=== PATIENT | female | born 1945 | race Caucasian/White ===

== ENCOUNTER 2024-02-22 12:19 | Outpatient (CLI) | payer MEDICARE, SELFPAY ==
--- NOTE | ~2024-02-22 | DEXA_ITS ---
Bone Density Report Name: DUY ORTA Age: 78 Sex: Female Ethnicity: White Date of : 1945 Indication: postmenopausal; screening for osteoporosis; Referring Provider: ANNEL OH Study: Bone densitometry was performed. Exam Date: February 22, 2024 Accession number: [id number] Bone Density: Region BMD T-score Z-score Classification AP Spine(L2, L3, L4) 1.135 0.5 3.1 Normal Femoral Neck (Left) 0.806 -0.4 1.8 Normal Total Hip (Left) 0.817 -1.0 0.9 Normal Femoral Neck (Right) 0.748 -0.9 1.3 Normal Total Hip (Right) 0.834 -0.9 1.0 Normal Femoral Neck Mean 0.777 -0.6 1.5 Normal Total Hip Mean 0.826 -1.0 0.9 Normal World Health Organization criteria for BMD impression classify patients as: Normal (T-score at or above -1.0), Osteopenia (T-score between -1.0 and -2.5), or Osteoporosis (T-score at or below -2.5). 10-year Fracture Risk: FRAX not reported because: All T-scores for Spine Total, Hip Total, Femoral Neck at or above -1.0 Clinical Information Provided by Patient: Smokes Has used the following medications: Vitamin D Patient maximum height was 61 Menopause Age: 37 No regular weight bearing exercise Does not regularly consume dairy products Drinks caffeinated beverages Onset of menses at age 13 Number of children 0 Impression: The patient has normal bone mass. The patient has risk factors, including: smoking. Discussion: BONE DENSITY IS ABOVE THE MINIMUM DESIRABLE LEVEL AT ALL SKELETAL SITES TESTED. This patient?s bone mineral density is above the minimum desirable level (T-score -1.0 or better) at all sites measured. The patient should follow a healthful lifestyle (good nutrition with adequate calcium and vitamin D, and appropriate weight-bearing exercise). Follow-Up: Consider repeating this study in 5 years or sooner if there is some new clinical indication. Reported by: Dr. Paolo Echols on 02/22/2024 12:45:00 PM. Reviewed, dictated and finalized at location [facility]
== END 2024-02-22 12:20 | disposition home or self-care (01) ==
LOC: CHSIMG 12:24
PROVIDERS: PCP Family Medicine; Visit Provider Orthopaedic Surgery
DX: M81.0 Age-related osteoporosis without current pathological fracture (principal)
CPT/HCPCS: 77080

== ENCOUNTER 2024-03-27 14:34 | Outpatient (CLI) | payer MEDICARE, SELFPAY ==
--- NOTE | 2024-03-27 14:40 | ECG_ITS ---
Test Date: 2024-03-27 14:48:33 Measurements Intervals [place] Rate: 75 P: 57 VA: 176 QRS: 56 QRSD: 74 T: 61 QT: 398 QTc: 446 Interpretive Statements SINUS RHYTHM RSR' IN V1 OR V2, PROBABLY NORMAL VARIANT BORDERLINE ST ABNORMALITY- LATERAL LEADS BASELINE ARTIFACT- I, II, III, AVR, AVL, AVF, V5 BORDERLINE ECG No previous ECG available for comparison Electronically Signed On 03-27-2024 14:49:09 CDT by Clay Barr D.O.
== END 2024-03-27 14:35 | disposition home or self-care (01) ==
LOC: CHSCARD 14:36
PROVIDERS: PCP Family Medicine; Visit Provider Internal Medicine Cardiovascular Disease
DX: R06.09 Other forms of dyspnea (principal)
CPT/HCPCS: 93005

== ENCOUNTER 2024-08-26 14:13 | Outpatient (CLI) | payer MEDICARE, SELFPAY ==
--- OUTSIDE RECORDS SUMMARY | 2024-08-26 14:32 | XMS_ITS | Encounter Summary ---
Author Organization [facility] Address [address] [place] [address]. [place], [place] [address] [place] [id number] Care Team Providers Care Iron Pourer Name Role Phone Bucky Jimenez MD Primary Care Provider [phone] Encounter Details Date Type Department Care Team (Late st Contact Info) Description 12/28/2018 Abstract SFL CONVERSION [address] [place] [address] , Generic Conversion, Social History Tobacco Use Types Packs/Day Years Used Date Smoking Tobacco: Never Assessed Comments Unknown Sex and Gender Information Value Date Recorded Sex Assigned at Female 08/02/2020 11:49 AM DECKHAND MAINTENANCE Legal Sex Female 5:48 PM DECKHAND MAINTENANCE Gender Identity Female 08/02/2020 11:49 AM DECKHAND MAINTENANCE Sexual Orientation Not on file documented as of this encounter Plan of Treatment Not on file documented as of this encounter Visit Diagnoses Not on filedocumented in this encounter Care Teams Iron Pourer Relationship Specialty Start Date End Date Bucky Jimenez MD [address] [place] [phone] PCP - General FAMILY PRACTICE 01/02/19 documented as of this encounter
--- OUTSIDE RECORDS SUMMARY | 2024-08-26 14:32 | XMS_ITS | Clinical Summary ---
Author Organization [facility] Address [address] [place] [address]. [place] [address] [place] [address] Care Team Providers Care Legal Department Manager Name Role Phone Bucky Jimenez MD Primary Care Provider +- [phone] Allergies No known active allergies Medications metFORMIN 500 MG tablet Take 2 tablets (1,000 mg total) by mouth 2 (two) times daily with meals. 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 Immunizations Name Administration Dates Next Due Fluzone High Dose - >Age 65 (Prefilled Syringe) 05/11/2020 PFIZER COVID-19 (ORIGINAL FO RMULATION, PURPLE CAP) mRNA, LNP-S, PF, 30 MCG/0.3 ML DOSE 10/01/2020,09/10/2020 Family History Medical History Relation Comments Arthritis Father Hypertension Father Arthritis Mother Diabetes Mother Stroke Mother Relation Status Comments Father Mother Social History Tobacco Use Types Packs/Day Years Used Date Smoking Tobacco: Every Day Cigarettes 0.5 60 Smokeless Tobacco: Never Tobacco Cessation:Ready to Q uit: No; Counseling Given: No Alcohol Use Standard Drinks/Week Comments Not Currently 0 (1 standard drink = 0.6 oz pur e alcohol) Social Connection and Isolat ion Panel [NHANES] Answer Date Recorded In a typical week, how many times do you talk on the phone with family, friends, or neighbors? More than three times a week 08/02/2020 How often do you get togethe r with friends or relatives? Never 08/02/2020 How often do you attend chur ch or baptist services? Never 08/02/2020 Do you belong to any clubs o r organizations such as scientology groups, unions, fraternal or athletic groups, or school groups? No 08/02/2020 How often do you attend meet ings of the clubs or organizations you belong to? Never 08/02/2020 Are you , , di vorced, , never , or living with a partner? 08/02/2020 Overall Financial Resource Strain (CARDIA) Answe r Date Recorded How hard is it for you to pa y for the very basics like food, housing, medical care, and heating? Not hard at all 08/02/2020 [facility] [place] [facility]ational Stress Questionnaire Answer Date Recorded Do you feel stress - tense, restless, nervous, or anxious, or unable to sleep at night because your mind is troubled all the time - these days? Not at all 08/02/2020 Exercise Vital Sign Answer Date Recorde d On average, how many days pe r week do you engage in moderate to strenuous exercise (like a brisk walk)? 0 days 08/02/2020 On average, how many minutes do you engage in exercise at this level? 0 min 08/02/2020 Hunger Vital Sign Answer Date Recorded Within the past 12 months, y ou worried that your food would run out before you got the money to buy more. Never true 08/02/19 21 Within the past 12 months, t he food you bought just didn't last and you didn't have money to get more. Never true 08/02/2020 PRAPARE - Transportation Answer Date Re corded In the past 12 months, has l ack of transportation kept you from medical appointments or from getting medications? No 07/23 In the past 12 months, has l ack of transportation kept you from meetings, work, or from getting things needed for daily living? No 08/02/2020 Education Answer Date Recorded What is the highest level of school you have completed or the highest degree you have received? 12th grade 08/02/2020 Comments No Sex and Gender Information Value Date Recorded Sex Assigned at Female 08/02/2020 11:49 AM WAX PATTERN ASSEMBLER Legal Sex Female 5:48 PM WAX PATTERN ASSEMBLER Gender Identity Female 08/02/2020 11:49 AM WAX PATTERN ASSEMBLER Sexual Orientation Not on file Last Filed Vital Signs Vital Sign Reading Time Taken Comments Blood Pressure 129/51 01/18/2021 2:32 PM CDT Pulse 62 01/18/2021 2:32 PM CDT Temperature 36.1 ??C (96.9 ??F) 01/18/2021 2:32 PM CD T Respiratory Rate 20 01/18/2021 2:32 PM CDT Oxygen Saturation 95% 01/18/2021 2:32 PM CDT Inhaled Oxygen Concentration - - Weight 74.4 kg (164 lb) 01/12/2021 12:54 PM CDT Height 154.9 cm (5' 1 ) 01/12/2021 12:54 PM CDT Body Mass Index 30.99 01/12/2021 12:54 PM CDT Plan of Treatment Health Maintenance Due Date Last Done Comments Hepatitis C 1963 DTaP, Tdap and Td Vaccines (1 - Tdap) 1964 Annual Medicare Wellness Visit 2012 Dexa Scan (General) 2012 RSV Immunization or 60+ Years (1 - 1-dose 75+ series) 2022 COVID-19 Vaccine ( season) 2024 10/01/2020, 09/10/2020 Influenza Adult (#1) 2024 06/26/2022, 05/12/2020, 05/11/2020, Additional history exists Lung Cancer Screening 03/19/2025 03/19/2024 , 08/21/2023, 06/23/2021 Pneumococcal Vaccine: 65+ Years Completed 03/11/2019, 02/11/2018 Zoster Vaccines Completed 04/09/2019, 08/24/2018 Meningococcal B Vaccine Aged Out No l onger eligible based on patient's age to complete this topic Meningococcal Vaccine Aged Out No brinda fili eligible based on patient's age to complete this topic RSV Immunizations Under 20 Months Aged Out No longer eligible based on patient's age to complete this topic Procedures Procedure Name Priority Date/Time Associated Diagnosis Comments CT CHEST WO CON FLAVIA 03/19/2024 8:05 AM CDT Lung nodule from Last 3 Months or Most Recently Relevant to Health Maintenance Results * CT CHEST WO CON (03/19/2024 8:05 AM CDT) Anatomical Region Laterality Modality Chest Computed Tomogra phy 03/19/2024 12:4 0 PM CDT Impressions 03/19/2024 12:48 PM CDT IMPRESSION: 1. Stable exam. Pulmonary nodule in the right middle lobe is unchanged over greater than 3 years and requires no specific additional follow-up, probably either small bronchocele with mucoid impaction versus postinfectious fibroatelectasis. 2. Stable mild subpleural reticular opacities which most likely represent mild fibrosis. This may be postinfectious, versus reflection of stable early/mild interstitial lung disease such as UIP or NSIP, less likely chronic/cluster 2 hypersensitivity pneumonitis. Ordered By: HAILE NUÑEZ Interpreted By: Hossein Turner MD, 03/19/2024 12:40 PM Narrative 03/19/2024 12:48 PM [address]T [address] [place] [address] EXAM: NONCONTRAST CT CHEST INDICATION: Follow-up lung nodule, fibrotic changes COMPARISON: 08/21/2023, 06/23/2021 TECHNIQUE: Unenhanced multidetector CT is performed through the chest. ??Multiplanar images are created and reviewed. A dose lowering technique was used for this procedure, which may include, but is not limited to, dose reduction techniques, automated exposure control, the use of a iterative reconstruction, and ALARA (as low as reasonably achievable)/image gently techniques. FINDINGS: Heart: Heart size is normal. There is no pericardial effusion. Great vessels: Normal in caliber. Mediastinum and [place]: There are calcified lymph nodes in the mediastinum and left hilum, compatible with prior granulomatous infection and essentially unchanged. No noncalcified adenopathy or mass is seen. Pleura: There is no effusion, pneumothorax, or pleural mass. Lungs: There is no acute pulmonary consolidation. Multiple calcified granulomata are present bilaterally, stable for several years. A small tubular/cylindrical nodule in the right middle lobe on series 2, image 53 has a maximum dimension of 1 cm and is unchanged dating back to 06/23/2021, either reflecting a small focus of mucoid impaction within a bronchocele versus fibroatelectatic scarring. Given stability over than 3 years, this May safely be assumed to be benign and requires no dedicated follow-up. Scattered foci of mild subpleural scarring and subsegmental fibroatelectasis show little change from prior studies. There is mild underlying emphysema. In addition, there is a subpleural distribution of mild reticular opacity, somewhat more pronounced in the dependent areas, although without particularly pronounced costophrenic angle involvement. Upper abdomen: Limited evaluation of the upper abdominal organs shows no acute abnormality. Other: No destructive osseous lesion is identified. Procedure Note Hossein Turner MD - 03/19/2024 [place] [id number] [facility] [place] [address] EXAM: NONCONTRAST CT CHEST INDICATION: Follow-up lung nodule, fibrotic changes COMPARISON: 08/21/2023, 06/23/2021 TECHNIQUE: Unenhanced multidetector CT is performed through the chest.Multiplanar images are created and reviewed. A dose lowering technique wasused for this procedure, which may include, but is not limited to, dosereduction techniques, automated exposure control, the use of a iterativereconstruction, and ALARA (as low as reasonably achievable)/image gentlytechniques. FINDINGS: Heart: Heart size is normal. There is no pericardial effusion. Great vessels: Normal in caliber. Mediastinum and china: There are calcified lymph nodes in the mediastinumand left hilum, compatible with prior granulomatous infection andessentially unchanged. No noncalcified adenopathy or mass is seen. Pleura: There is no effusion, pneumothorax, or pleural mass. Lungs: There is no acute pulmonary consolidation. Multiple calcifiedgranulomata are present bilaterally, stable for several years. A smalltubular/cylindrical nodule in the right middle lobe on series 2, image 53has a maximum dimension of 1 cm and is unchanged dating back to 06/23/2021,either reflecting a small focus of mucoid impaction within a bronchoceleversus fibroatelectatic scarring. Given stability over than 3 years, thisMay safely be assumed to be benign and requires no dedicated follow-up.Scattered foci of mild subpleural scarring and subsegmentalfibroatelectasis show little change from prior studies. There is mildunderlying emphysema. In addition, there is a subpleural distribution ofmild reticular opacity, somewhat more pronounced in the dependent areas,although without particularly pronounced costophrenic angle involvement. Upper abdomen: Limited evaluation of the upper abdominal organs shows noacute abnormality. Other: No destructive osseous lesion is identified. IMPRESSION: 1. Stable exam. Pulmonary nodule in the right middle lobe is unchangedover greater than 3 years and requires no specific additional follow-up,probably either small bronchocele with mucoid impaction versuspostinfectious fibroatelectasis. 2. Stable mild subpleural reticular opacities which most likely representmild fibrosis. This may be postinfectious, versus reflection of stableearly/mild interstitial lung disease such as UIP or NSIP, less likelychronic/cluster 2 hypersensitivity pneumonitis. Ordered By: HAILE NUÑEZ Interpreted By: Hossein Turner MD, 03/19/2024 12:40 PM Haile Nuñez MD CT Final Result from Last 3 Months or Most Recently Relevant to Health Maintenance Insurance MEDICARE [employer] Advance Directives * Full Code (Latest Code Status on File) Date Activated Date Inactivated Comments 08/02/2020 12:27 PM 08/03/2020 1:09 PM Care Teams Legal Department Manager Relationship Specialty Start Date End Date Bucky Jimenez MD [address] [place] [phone] PCP - General FAMILY PRACTICE 01/02/19
--- OUTSIDE RECORDS SUMMARY | 2024-08-26 14:32 | XMS_ITS | Clinical Summary ---
Author Organization [facility] Address [address] [place] [address] Care Team Providers Care Trust Manager Name Role Phone Bucky Jimenez MD Primary Care Provider Allergies No known active allergies Medications traMADoL (ULTRAM) 50 mg tablet Take 1 tablet (50 mg total) by mouth every 6 (six) hours as needed for pain Active Active Problems No known active problems Encounters Date Type Department Care Team Description 08/18/2024 12:24 PM BIOMEDICAL REPAIR TECHNICIAN - 08/18/2024 11:59 PM BIOMEDICAL REPAIR TECHNICIAN Hospital Encounter [facility] [address] [place] [address] Rad Amh Fluoro Right hip pain Discharge Disposition: Discharge to home or self care 08/08/2024 9:30 AM BIOMEDICAL REPAIR TECHNICIAN Office Visit [facility] [address] [place] [phone] Micaela Alexander NP Right hip pain (Primary Dx) 08/08/2024 7:50 AM BIOMEDICAL REPAIR TECHNICIAN - 08/08/2024 11:59 PM BIOMEDICAL REPAIR TECHNICIAN Hospital Encounter [facility] Medicine [address] [place] [phone] Discharge Disposition: Discharge to home or self care 08/08/2024 Telephone [facility] [address] [place] [phone] Kylah Brownlee MA no auth from Last 3 Months Surgical History Surgery Date Site/Laterality Comments BACK SURGERY FLUORO GUIDED INJECTION HIP RIGHT 08/18/2024 Right Social History Tobacco Use Types Packs/Day Years Used Date Smoking Tobacco: Every Day Cigarettes 0.1 68.1 Started: 1954 Tobacco Cessation:Ready to Q uit: No; Counseling Given: Yes Comments Unknown Sex and Gender Information Value Date Recorded Sex Assigned at Not on file Legal Sex Female 3:02 PM BIOMEDICAL REPAIR TECHNICIAN Gender Identity Not on file Sexual Orientation Not on file Obstetrics History Last Filed Vital Signs Vital Sign Reading Time Taken Comments Blood Pressure 120/68 08/08/2024 8:55 AM BIOMEDICAL REPAIR TECHNICIAN Pulse 73 08/08/2024 8:55 AM BIOMEDICAL REPAIR TECHNICIAN Temperature - - Respiratory Rate - - Oxygen Saturation - - Inhaled Oxygen Concentration - - Weight 70.8 kg (156 lb) 08/08/2024 8:55 AM BIOMEDICAL REPAIR TECHNICIAN Height 152.4 cm (5') 08/08/2024 8:55 AM BIOMEDICAL REPAIR TECHNICIAN Body Mass Index 30.47 08/08/2024 8:55 AM BIOMEDICAL REPAIR TECHNICIAN Plan of Treatment Health Maintenance Due Date Last Done Comments Depression Screening 1945 Fall Risk Assessment 1945 Hepatitis C Screening 1945 Osteoporosis Screening-Bone Density Scan 1945 DTaP/Tdap/Td Vaccine (1 - Tdap) 1958 Hepatitis B Screening 1965 Well Visit 65+ 2012 Covid-19 Vaccine (3 - 2023-2 5 season) 2024 10/01/2020, 09/10/2020 Influenza Vaccine (#1) 2024 , 05/30/2022, 05/18/2021, Additional history exists Pneumococcal vaccine 65+ Completed 03/11/2019, 01/21 Zoster Vaccine Completed 04/09/2019, 08/24/2018 Procedures Procedure Name Priority Date/Time Associated Diagnosis Comments FLUORO GUIDED INJECTION HIP RIGHT Schedule Routine, Read Routine (OP Routine) 08/18/2024 1:09 PM BIOMEDICAL REPAIR TECHNICIAN Right hip pain XR HIP RIGHT 2 OR 3 VIEWS Schedule Routine, Read Routine (OP Routine) 08/08/2024 8:45 AM BIOMEDICAL REPAIR TECHNICIAN Right hip pain from Last 3 Months Results * FL Fluoro Guided Injection Hip Right (08/18/2024 1:09 PM BIOMEDICAL REPAIR TECHNICIAN) Anatomical Region Laterality Modality Hip Right Radio Fluoroscop y 08/18/2024 1:14 PM BIOMEDICAL REPAIR TECHNICIAN Narrative 08/18/2024 1:14 PM BIOMEDICAL REPAIR TECHNICIAN EXAMINATION: ? Right hip ??joint injection under ??fluoroscopic ??guidance HISTORY: Right hip ??osteoarthritis ATTENDING PRESENCE: Dr. Jt Landeros M.D., the attending radiologist, was present from the beginning to the end of the procedure. SEDATION: The patient did not require conscious sedation for the procedure. TECHNIQUE: The risks, benefits and alternatives were discussed and informed consent was obtained. ??Prior to beginning the procedure, universal Protocol was performed to confirm the patient's identity and the planned procedure. Sterile barriers used during the procedure included cap, mask, hand hygiene, sterile gloves, and sterile drape. ??Chloraprep was used for cutaneous antisepsis. The patient was placed supine on the ??fluoroscopy ??table. ?? The ipsilateral artery was palpated and marked. ??The ??right hip ??joint was localized with ?? fluoroscopic ??guidance. ??Local anesthesia was achieved with subcutaneous injection of 1% lidocaine 2 mL. ??A 22-gauge needle was then introduced into the joint under ??fluoroscopic ??guidance. ??3 mL of a 2:1 mixture of Omnipaque 240 and 0.2% ropivacaine was injected to verify intra-articular position of the needle tip. Subsequently, a 3 mL mixture consisting of Kenalog 40 mg/mL, 0.2% ropivacaine 1 mL, and 1 mL Omnipaque 240 was administered. The needle was removed. The skin was cleansed with hydrogen peroxide, and a bandage was placed. There were no complications of the procedure. ?? ESTIMATED BLOOD LOSS: None CONDITION: Stable condition. DISCHARGED TO: Home FINDINGS: The dose area product was ??0.0363 ??mGy*m2. Fluoroscopic ??images confirm intra-articular position of the needle tip. ?? IMPRESSION: 1. ?? Right hip ??joint injection under ??fluoroscopic ??guidance. ?? THIS IS AN ELECTRONICALLY VERIFIED FINAL REPORT 08/18/2024 1:14 PM - Electronically signed by ??Jt Landeros M.D. MF: [email or web address] D: ??08/18/2024 1:14 PM T: ??08/18/2024 1:14 PM Report ID: [id number] Reading Location: ??[id number] Procedure Note Jt Landeros MD - 08/18/2024 EXAMINATION: Right hip joint injection under fluoroscopic guidance HISTORY: Right hip osteoarthritis ATTENDING PRESENCE: Dr. Jt Landeros M.D., the attendingradiologist, was present from the beginning to the end of the procedure. SEDATION: The patient did not require conscious sedation for theprocedure. TECHNIQUE: The risks, benefits and alternatives were discussed andinformed consent was obtained. Prior to beginning the procedure, universalProtocol was performed to confirm the patient's identity and the plannedprocedure. Sterile barriers used during the procedure included cap, mask, handhygiene, sterile gloves, and sterile drape. Chloraprep was used for cutaneous antisepsis. The patient was placed supine on the fluoroscopy table. Theipsilateral artery was palpated and marked. The right hip joint was localized with fluoroscopic guidance. Local anesthesia was achieved with subcutaneous injection of 1% lidocaine 2 mL. A 22-gauge needle was then introducedinto the joint under fluoroscopic guidance. 3 mL of a 2:1 mixture ofOmnipaque 240 and 0.2% ropivacaine was injected to verify intra-articular positionof the needle tip. Subsequently, a 3 mL mixture consisting of Kenalog 40mg/mL, 0.2% ropivacaine 1 mL, and 1 mL Omnipaque 240 was administered. The needlewas removed. The skin was cleansed with hydrogen peroxide, and a bandage was placed. There were no complications of the procedure. ESTIMATED BLOOD LOSS: None CONDITION: Stable condition. DISCHARGED TO: Home FINDINGS: The dose area product was 0.0363 mGy*m2. Fluoroscopic images confirm intra-articular position of the needle tip. IMPRESSION: 1. Right hip joint injection under fluoroscopic guidance. THIS IS AN ELECTRONICALLY VERIFIED FINAL REPORT 08/18/2024 1:14 PM - Electronically signed by Jt Landeros M.D. MF: [email or web address] Report ID: [id number] Reading Location: [id number] Micaela Alexander CLASSIFICATION CLERK IMG FLUOROSCOPY PROCEDU RES Final Result * XR Hip Right 2 or 3 Views (08/08/2024 8:45 AM BIOMEDICAL REPAIR TECHNICIAN) Anatomical Region Laterality Modality Lower Extremities, Hip, Pelvis Right D igital Radiography Narrative 08/08/2024 9:32 AM BIOMEDICAL REPAIR TECHNICIAN Radiographs taken of the right hip today reveal severe degenerative changes with subchondral sclerosis, osteophyte formation, and diminished joint space. ?? Micaela Alvina Alexander CLASSIFICATION CLERK IMG XR PROCEDURES Final Result from Last 3 Months Insurance MEDICARE [email or web address] [facility] Care Teams Trust Manager Relationship Specialty Start Date End Date Bucky Jimenez MD [address] [place] [phone] PCP - General Family Medicine 07/10/24
--- OUTSIDE RECORDS SUMMARY | 2024-08-26 14:32 | XMS_ITS | Referral Summary ---
Author Organization [facility] [address] Address [address] [place] [address] Care Team Providers Care Procedures Analyst Name Role Phone Bucky Jimenez MD Primary Care Provider Encounters Date Type Department Care Team Description 08/18/2024 12:24 PM [employer] - 08/18/2024 11:59 PM [employer] Hospital Encounter [facility] [address] [place] [address] Rad Amh Fluoro Right hip pain Discharge Disposition: Discharge to home or self care 08/08/2024 Telephone [facility] [address] [place] [address] [phone] Kylah Brownlee MA no auth 08/08/2024 7:50 AM [employer] - 08/08/2024 11:59 PM [employer] Hospital Encounter [facility] [address] [place] [address] [phone] Discharge Disposition: Discharge to home or self care 08/08/2024 9:30 AM [employer] Office Visit [facility] [address] [place] [address] [phone] Micaela Alexander NP Right hip pain (Primary Dx) from Last 3 Months Allergies No known active allergies Medications traMADoL (ULTRAM) 50 mg tablet Take 1 tablet (50 mg total) by mouth every 6 (six) hours as needed for pain Active Active Problems No known active problems Social History Tobacco Use Types Packs/Day Years Used Date Smoking Tobacco: Every Day Cigarettes 0.1 68.1 Started: 1954 Tobacco Cessation:Ready to Q uit: No; Counseling Given: Yes Comments Unknown Sex and Gender Information Value Date Recorded Sex Assigned at Not on file Legal Sex Female 3:02 PM [employer] Gender Identity Not on file Sexual Orientation Not on file Last Filed Vital Signs Vital Sign Reading Time Taken Comments Blood Pressure 120/68 08/08/2024 8:55 AM [employer] Pulse 73 08/08/2024 8:55 AM [employer] Temperature - - Respiratory Rate - - Oxygen Saturation - - Inhaled Oxygen Concentration - - Weight 70.8 kg (156 lb) 08/08/2024 8:55 AM [employer] Height 152.4 cm (5') 08/08/2024 8:55 AM [employer] Body Mass Index 30.47 08/08/2024 8:55 AM [employer] Plan of Treatment Not on file Procedures Procedure Name Priority Date/Time Associated Diagnosis Comments FLUORO GUIDED INJECTION HIP RIGHT Schedule Routine, Read Routine (OP Routine) 08/18/2024 1:09 PM [employer] Right hip pain XR HIP RIGHT 2 OR 3 VIEWS Schedule Routine, Read Routine (OP Routine) 08/08/2024 8:45 AM [employer] Right hip pain from Last 3 Months Results * FL Fluoro Guided Injection Hip Right (08/18/2024 1:09 PM [employer]) Anatomical Region Laterality Modality Hip Right Radio Fluoroscop y 08/18/2024 1:14 PM [employer] Narrative 08/18/2024 1:14 PM [employer] EXAMINATION: ? Right hip ??joint injection under [...] PM T: ??08/18/2024 1:14 PM Report ID: [id number] Reading Location: [id number] Procedure Note Jt Landeros MD - 08/18/2024 [...] Jt Landeros M.D. MF: [id number] Report ID: [id number] Reading Location: [id number] Micaela Alexander NP IMG FLUOROSCOPY PROCEDU RES Final Result * XR Hip Right 2 or 3 Views (08/08/2024 8:45 AM [employer]) Anatomical Region Laterality Modality Lower Extremities, Hip, Pelvis Right D igital Radiography Narrative 08/08/2024 9:32 AM [employer] Radiographs taken of the right hip today reveal severe degenerative changes with subchondral sclerosis, osteophyte formation, and diminished joint space. ?? Micaela Alexander NP IMG XR PROCEDURES Final Result from Last 3 Months Insurance MEDICARE [facility] Care Teams Procedures Analyst Relationship Specialty Start Date End Date Bucky Jimenez MD [address] [place] [phone] PCP - General Family Medicine 07/10/24
== END 2024-08-26 14:14 | disposition home or self-care (01) ==
LOC: CHSLAB 14:17
PROVIDERS: PCP Family Medicine; Visit Provider Specialist
DX: L81.4 Other melanin hyperpigmentation (principal)
CPT/HCPCS: 88305